=== PATIENT | female | born 1990 | race Caucasian/White ===

== ENCOUNTER 2021-01-18 16:59 | Outpatient (CLI) | payer OTHER ==
[2021-01-18 20:06] LABS: BILIRUBIN,URINE NEGATIVE (NEGATIVE); GLUCOSE, URINE (UA) 100 mg/dL (NEGATIVE); KETONES,URINE (UA) TRACE mg/dL (NEGATIVE)
[2021-01-18 20:10] LABS: CLARITY,URINE CLOUDY (CLEAR)
[2021-01-18 20:15] LABS: BACTERIA,URINE Few /HPF (None Seen); CRYSTALS,URINE 6-10 Calcium Oxalate /LPF; RBC,URINE TNTC /HPF (0-5); SQUAMOUS EPITHELIAL CELL,UR FEW Squamous (<= Few); WBC,URINE >25 /HPF (0-5)
== END 2021-01-18 23:59 | disposition home or self-care (01) ==
LOC: LAB.S 16:59
PROVIDERS: ATTEND Physician Assistant Medical
DX: R30.0 Dysuria (principal)
CPT/HCPCS: 81001; 87086

== ENCOUNTER 2021-07-01 08:00 | Outpatient (CLI) | payer OTHER ==
--- NOTE | 2021-07-01 18:18 | XRAY Report ---
PROCEDURE: Foot 3 View RT INDICATIONS: STEPPED ON A NAIL TECHNIQUE: 3 views of the foot were acquired. COMPARISON: None FINDINGS: Bones: No fractures or dislocations. No suspicious bony lesions. Soft tissues: No tibiotalar joint effusion. Achilles tendon appears normal. IMPRESSION: Unremarkable right foot radiographs Reviewed by: Carson Paniagua MD on 07/01/2021 5:16 PM [place] Approved by: Carson Paniagua MD on 07/01/2021 5:16 PM [place] Station ID: [id number]
== END 2021-07-01 23:59 | disposition home or self-care (01) ==
LOC: DI.S 08:00
PROVIDERS: ATTEND Physician Assistant Medical
DX: S91.331A Puncture wound without foreign body, right foot, initial encounter (principal)